=== PATIENT | female | born 1960 | race Caucasian/White ===

== ENCOUNTER 2017-11-12 17:15 | Emergency (ER) | payer OTHER, BC ==
[~2017-11-12] VITALS: Ht 149.9 cm; Wt 105.5 kg
[~2017-11-12 17:15] MED LIST: ADVAIR 250/501 DISK IH; ALPRAZOLAM0.25 M2 PO; AMLODIPINE BESY10 MG PO; CELEXA10 MG PO; CELEXA20 MG PO; CLONAZEPAM0.5 MG; GLUCOPHAGE1000 MG PO; METFORMIN; PANTOPRAZOLE SO40 MG PO; PRINIVIL20 MG PO; PROAIR HFA8.5 GM IH; PROZAC40 MG PO; VITAMIN D PO; WELLBUTRIN SR150 MG PO; ZESTORETIC 20-1 EAC1 PO; ZESTORETIC,P1 TABLE2 PO
[2017-11-12 17:27] VITALS: BP 160/87
== END 2017-11-12 18:30 | disposition home or self-care (01) ==
LOC: EME 17:15
DX: Z04.1 Encounter for examination and observation following transport accident (principal); Z98.890 Other specified postprocedural states; I10 Essential (primary) hypertension; I44.7 Left bundle-branch block, unspecified
CPT/HCPCS: 99281; 99284